=== PATIENT | female | born 1955 | race Caucasian/White ===

== ENCOUNTER 2024-04-27 10:55 | Inpatient (IN) | payer BC, OTHER ==
[~2024-04-27] VITALS: Ht 165.1 cm; Wt 57.2 kg
[~2024-04-27 10:55] MED LIST: ALBU2.5V13 IH; ALPR0.25 PO; AMIT50TA3 PO; ASPI-1169 PO; ATOR10TA PO; CARV3.122 PO; DIPH25CA51 PO; FLUT1DIS3 IH; FURO20TA4 PO; IPRA12.9 IH; LISI-768 PO; NAPR220T66 PO; OMEP40CA21 PO; TRAM50TA2 PO; ZOLP5TAB2 PO
[2024-04-27] MEDS ORDERED: MORPHINE SULFATE INJ 4 MG/ML DISP.SYRIN ONE ×2 (11:14→15:04)
[2024-04-27] MEDS ORDERED: ONDANSETRON HCL/PF 4 MG/2 ML VIAL ONE (11:14)
[2024-04-27] MEDS: ONDANSETRON HCL/PF 4 MG/2 ML VIAL IVP ONE (11:36)
[2024-04-27] MEDS: MORPHINE SULFATE INJ 2 MG/ML DISP.SYRIN IV ONE (11:37)
[2024-04-27] MEDS: IV NS 0.9% 500 ML BAG IV ONE (11:37)
[2024-04-27 11:51] LABS: BASOPHILS # (AUTO) 0.1 K/uL (0.0-0.2); BASOPHILS % (AUTO) 2.1 % (0.0-2.0); EOSINOPHILS # (AUTO) 0.1 K/uL (0.0-0.7); EOSINOPHILS % (AUTO) 1.2 % (0.0-6.0); HEMATOCRIT 34 % (33-45); HEMOGLOBIN 10.9 g/dL (11.5-14.8); LYMPHOCYTES # (AUTO) 1.2 K/uL (0.8-4.8); LYMPHOCYTES % (AUTO) 19.5 % (20.0-44.0); MEAN CORPUSCULAR HEMOGLOBIN 31 PG (26.0-33.0); MEAN CORPUSCULAR HGB CONC 32 g/dl (31.0-36.0); MEAN CORPUSCULAR VOLUME 96 fL (82-100); MONOCYTES # (AUTO) 0.4 K/uL (0.1-1.30); MONOCYTES % (AUTO) 5.8 % (2.0-12.0); NEUTROPHILS # (AUTO) 4.6 K/uL (1.8-8.9); NEUTROPHILS % (AUTO) 71.4 % (43.0-81.0); PLATELET COUNT (AUTO) 298 K/uL (150-450); RED BLOOD CELL COUNT(AUTO) 3.56 MIL/uL (4.0-5.2); RED CELL DISTRIBUTION WIDTH 13.7 % (11.5-15.0); WHITE BLOOD COUNT (AUTO) 6.4 K/uL (4.3-11.0)
[2024-04-27] MEDS ORDERED: ALEN70TA80 PO (11:56)
[2024-04-27] MEDS ORDERED: METO50TA16 PO (11:56)
[2024-04-27] MEDS ORDERED: CALC0.253 PO (11:56)
[2024-04-27] MEDS ORDERED: BIMA2.5D5 EACHEYE (11:56)
[2024-04-27] MEDS ORDERED: SODI10PO PO (11:56)
[2024-04-27 12:11] LABS: CALCIUM, SERUM 8.5 mg/dL (8.5-10.1); CREATININE 1.3 mg/dL (0.6-1.3); POTASSIUM 3.8 mmol/L (3.5-5.1)
[2024-04-27] MEDS: MORPHINE SULFATE INJ 4 MG/ML DISP.SYRIN IV STA (15:10)
[2024-04-27 16:00] VITALS: BP 117/76; TEMP 97.9; O2SAT 94
[2024-04-27] MEDS ORDERED: MAG HYDROX/AL HYDROX/SIMETH 30 ML UDC PO PRN (16:00)
[2024-04-27] MEDS ORDERED: Z GUARD REMEDY 4 OZ OINT TP PRN (16:00)
[2024-04-27] MEDS: METOPROLOL TARTRATE 50 MG TABLET PO SCH (17:39)
[2024-04-27] MEDS: MORPHINE SULFATE INJ 4 MG/ML DISP.SYRIN IV PRN (18:34)
[2024-04-27 20:43] VITALS: BP 108/62; TEMP 97.9; O2SAT 94
[2024-04-27] MEDS: AMITRIPTYLINE HCL 25 MG TABLET PO SCH (21:06)
[2024-04-28] VITALS (38 sets, daily range): BP systolic 70–145; BP diastolic 50–87; TEMP 97.5–98.7; O2SAT 73–100
[2024-04-28] MEDS: IV D5/0.45 NACL 1,000 ML IV ONE (05:06)
[2024-04-28 07:25] LABS: INR 0.96 (0.91-1.10); PARTIAL THROMBOPLASTIN TIME 27.9 SEC (24.3-34.3); PROTHROMBIN TIME 10.2 SECS (9.2-11.1)
[2024-04-28 07:26] LABS: BASOPHILS % (AUTO) 0.3 % (0.0-2.0); EOSINOPHILS % (AUTO) 0.3 % (0.0-6.0); HEMATOCRIT 36 % (33-45); LYMPHOCYTES # (AUTO) 1.1 K/uL (0.8-4.8); LYMPHOCYTES % (AUTO) 10.1 % (20.0-44.0); MEAN CORPUSCULAR HEMOGLOBIN 30 PG (26.0-33.0); MEAN CORPUSCULAR HGB CONC 31 g/dl (31.0-36.0); MEAN CORPUSCULAR VOLUME 98 fL (82-100); MONOCYTES # (AUTO) 0.6 K/uL (0.1-1.30); MONOCYTES % (AUTO) 5.5 % (2.0-12.0); NEUTROPHILS # (AUTO) 9.4 K/uL (1.8-8.9); NEUTROPHILS % (AUTO) 83.8 % (43.0-81.0); PLATELET COUNT (AUTO) 314 K/uL (150-450); RED BLOOD CELL COUNT(AUTO) 3.67 MIL/uL (4.0-5.2); RED CELL DISTRIBUTION WIDTH 13.5 % (11.5-15.0); WHITE BLOOD COUNT (AUTO) 11.3 K/uL (4.3-11.0)
[2024-04-28 07:37] LABS: CALCIUM, SERUM 8.7 mg/dL (8.5-10.1); CREATININE 1.4 mg/dL (0.6-1.3); MAGNESIUM 2.5 mg/dL (1.8-2.4); PHOSPHORUS 5.9 mg/dL (2.5-4.9); POTASSIUM 4.3 mmol/L (3.5-5.1)
[2024-04-28] MEDS: NALOXONE HCL 0.4 MG/ML AMPUL IV PRN (08:28)
[2024-04-28] MEDS: IV NS 0.9% 500 ML BAG IV ONE (09:08)
[2024-04-28 09:10] LABS: ABG BASE EXCESS 3.8 mmol/L (-2.0-3.0); ABG OXYGEN SATURATION 84.3 % (94.0-98.0); ABG PCO2 68.8 mmHg (32.0-45.0); ABG PH 7.287 (7.350-7.450); ABG TOTAL HEMOGLOBIN 11.7 G/dL (12.0-16.0); COHb 2.9 % (0.5-1.5); O2Hb 81.9 % (94.0-97.0); SITE, ABG RIGHT RADIAL
[2024-04-28 14:31] LABS: ABG BASE EXCESS 7.5 mmol/L (-2.0-3.0); ABG OXYGEN SATURATION 92.7 % (94.0-98.0); ABG PCO2 93.2 mmHg (32.0-45.0); ABG PH 7.225 (7.350-7.450); ABG PO2 71.9 mmHg (83.0-108.0); ABG TOTAL HEMOGLOBIN 10.9 G/dL (12.0-16.0); COHb 2.3 % (0.5-1.5); O2Hb 90.6 % (94.0-97.0); SITE, ABG UVC
[2024-04-28] MEDS: IV NS 0.9% 1,000 ML IV PRN (22:03)
[2024-04-29] VITALS (59 sets, daily range): BP systolic 92–163; BP diastolic 55–98; TEMP 97.2–100.2; O2SAT 88–100
[2024-04-29 00:29] LABS: ABG BASE EXCESS 2.3 mmol/L (-2.0-3.0); ABG PCO2 62.7 mmHg (32.0-45.0); ABG PH 7.296 (7.350-7.450); ABG PO2 80.7 mmHg (83.0-108.0); ABG TOTAL HEMOGLOBIN 10.9 G/dL (12.0-16.0); COHb 1.1 % (0.5-1.5); MetHb 0.2 % (0.0-1.5); O2Hb 93.8 % (94.0-97.0); SITE, ABG RIGHT BRACHIAL
[2024-04-29] MEDS: LORAZEPAM INJ 2 MG/ML VIAL IV ONE (02:26)
[2024-04-29] MEDS ORDERED: hydrALAZINE HCL IV 20 MG VIAL IV PRN (09:00)
[2024-04-29 11:23] LABS: ABG BASE EXCESS 1.4 mmol/L (-2.0-3.0); ABG OXYGEN SATURATION 85.2 % (94.0-98.0); ABG PCO2 61.6 mmHg (32.0-45.0); ABG PO2 51.1 mmHg (83.0-108.0); ABG TOTAL HEMOGLOBIN 10.7 G/dL (12.0-16.0); COHb 1.3 % (0.5-1.5); MetHb 0.1 % (0.0-1.5); SITE, ABG LEFT RADIAL
[2024-04-29] MEDS ORDERED: QUETIAPINE FUMARATE 25 MG TABLET PO SCH (12:00)
[2024-04-29] MEDS: QUETIAPINE FUMARATE 25 MG TABLET PO SCH (12:21)
[2024-04-29 12:24] LABS: BASOPHILS % (AUTO) 0.4 % (0.0-2.0); EOSINOPHILS # (AUTO) 0.1 K/uL (0.0-0.7); EOSINOPHILS % (AUTO) 0.6 % (0.0-6.0); HEMATOCRIT 31 % (33-45); HEMOGLOBIN 9.9 g/dL (11.5-14.8); LYMPHOCYTES # (AUTO) 0.6 K/uL (0.8-4.8); LYMPHOCYTES % (AUTO) 6.6 % (20.0-44.0); MEAN CORPUSCULAR HEMOGLOBIN 31 PG (26.0-33.0); MEAN CORPUSCULAR HGB CONC 32 g/dl (31.0-36.0); MEAN CORPUSCULAR VOLUME 99 fL (82-100); MONOCYTES # (AUTO) 0.5 K/uL (0.1-1.30); MONOCYTES % (AUTO) 5.2 % (2.0-12.0); NEUTROPHILS # (AUTO) 8.2 K/uL (1.8-8.9); NEUTROPHILS % (AUTO) 87.2 % (43.0-81.0); PLATELET COUNT (AUTO) 198 K/uL (150-450); RED BLOOD CELL COUNT(AUTO) 3.17 MIL/uL (4.0-5.2); RED CELL DISTRIBUTION WIDTH 13.8 % (11.5-15.0); WHITE BLOOD COUNT (AUTO) 9.5 K/uL (4.3-11.0)
[2024-04-29 12:28] LABS: CALCIUM, SERUM 8.5 mg/dL (8.5-10.1); CREATININE 1.1 mg/dL (0.6-1.3); POTASSIUM 4.7 mmol/L (3.5-5.1)
[2024-04-29] MEDS: ACETAMINOPHEN 325 MG TABLET PO PRN (19:52)
[2024-04-30] VITALS (25 sets, daily range): BP systolic 90–150; BP diastolic 50–91; TEMP 97.6–98.6; O2SAT 96–100
[2024-04-30 04:52] LABS: BASOPHILS # (AUTO) 0.1 K/uL (0.0-0.2); BASOPHILS % (AUTO) 0.9 % (0.0-2.0); EOSINOPHILS # (AUTO) 0.1 K/uL (0.0-0.7); EOSINOPHILS % (AUTO) 0.7 % (0.0-6.0); HEMATOCRIT 28 % (33-45); HEMOGLOBIN 8.6 g/dL (11.5-14.8); LYMPHOCYTES # (AUTO) 0.7 K/uL (0.8-4.8); LYMPHOCYTES % (AUTO) 4.8 % (20.0-44.0); MEAN CORPUSCULAR HEMOGLOBIN 31 PG (26.0-33.0); MEAN CORPUSCULAR HGB CONC 31 g/dl (31.0-36.0); MEAN CORPUSCULAR VOLUME 97 fL (82-100); MONOCYTES # (AUTO) 0.7 K/uL (0.1-1.30); MONOCYTES % (AUTO) 5.1 % (2.0-12.0); NEUTROPHILS # (AUTO) 12.2 K/uL (1.8-8.9); NEUTROPHILS % (AUTO) 88.5 % (43.0-81.0); PLATELET COUNT (AUTO) 171 K/uL (150-450); RED BLOOD CELL COUNT(AUTO) 2.83 MIL/uL (4.0-5.2); RED CELL DISTRIBUTION WIDTH 13.7 % (11.5-15.0); WHITE BLOOD COUNT (AUTO) 13.8 K/uL (4.3-11.0)
[2024-04-30 05:08] LABS: CALCIUM, SERUM 7.7 mg/dL (8.5-10.1); CREATININE 0.9 mg/dL (0.6-1.3); POTASSIUM 4.5 mmol/L (3.5-5.1)
[2024-04-30] MEDS: IPRATROPIUM NEB FS 0.5 MG/2.5 ML AMPUL.NEB NEB SCH (07:28)
[2024-04-30] MEDS: ALBUTEROL HALF STRENGTH 1.25 MG/3 ML VIAL.NEB NEB SCH (07:28)
[2024-04-30 07:56] LABS: ABG BASE EXCESS -0.5 mmol/L (-2.0-3.0); ABG OXYGEN SATURATION 90.2 % (94.0-98.0); ABG PH 7.273 (7.350-7.450); ABG PO2 61.6 mmHg (83.0-108.0); ABG TOTAL HEMOGLOBIN 10.5 G/dL (12.0-16.0); O2Hb 89.3 % (94.0-97.0); SITE, ABG RIGHT RADIAL
[2024-05-01] VITALS (33 sets, daily range): BP systolic 112–167; BP diastolic 52–117; TEMP 98–99; O2SAT 91–100
[2024-05-01 04:56] LABS: BASOPHILS % (AUTO) 0.3 % (0.0-2.0); EOSINOPHILS # (AUTO) 0.1 K/uL (0.0-0.7); EOSINOPHILS % (AUTO) 0.6 % (0.0-6.0); HEMATOCRIT 30 % (33-45); HEMOGLOBIN 9.5 g/dL (11.5-14.8); LYMPHOCYTES # (AUTO) 0.6 K/uL (0.8-4.8); LYMPHOCYTES % (AUTO) 4.8 % (20.0-44.0); MEAN CORPUSCULAR HEMOGLOBIN 31 PG (26.0-33.0); MEAN CORPUSCULAR HGB CONC 32 g/dl (31.0-36.0); MEAN CORPUSCULAR VOLUME 96 fL (82-100); MONOCYTES # (AUTO) 0.7 K/uL (0.1-1.30); MONOCYTES % (AUTO) 5.4 % (2.0-12.0); NEUTROPHILS % (AUTO) 88.9 % (43.0-81.0); PLATELET COUNT (AUTO) 203 K/uL (150-450); RED BLOOD CELL COUNT(AUTO) 3.08 MIL/uL (4.0-5.2); RED CELL DISTRIBUTION WIDTH 13.9 % (11.5-15.0); WHITE BLOOD COUNT (AUTO) 12.4 K/uL (4.3-11.0)
[2024-05-01 04:58] LABS: CALCIUM, SERUM 8.7 mg/dL (8.5-10.1); CREATININE 0.8 mg/dL (0.6-1.3); POTASSIUM 4.2 mmol/L (3.5-5.1)
[2024-05-01 09:00] LABS: ABG BASE EXCESS -3.2 mmol/L (-2.0-3.0); ABG OXYGEN SATURATION 94.1 % (94.0-98.0); ABG PCO2 44.5 mmHg (32.0-45.0); ABG PH 7.326 (7.350-7.450); ABG PO2 76.8 mmHg (83.0-108.0); ABG TOTAL HEMOGLOBIN 10.4 G/dL (12.0-16.0); COHb 0.9 % (0.5-1.5); O2Hb 93.3 % (94.0-97.0); SITE, ABG RIGHT BRACHIAL
[2024-05-01] MEDS: POLYVINYL ALCOHOL 15 ML BOTTLE EACHEYE PRN (17:50)
[2024-05-02] VITALS (22 sets, daily range): BP systolic 107–186; BP diastolic 62–134; TEMP 97.6–98.8; O2SAT 79–100
[2024-05-02] MEDS: CLONIDINE HCL 0.1 MG TABLET PO PRN (07:08)
[2024-05-02] MEDS: HYDROCODONE/APAP 5/325MG TABLET PO ONE (21:40)
[2024-05-03] VITALS (11 sets, daily range): BP systolic 107–167; BP diastolic 70–85; TEMP 97.2–98.7; O2SAT 91–100
[2024-05-03 07:37] LABS: CALCIUM, SERUM 8.4 mg/dL (8.5-10.1); CREATININE 0.8 mg/dL (0.6-1.3); POTASSIUM 4.3 mmol/L (3.5-5.1)
[2024-05-03 07:44] LABS: BASOPHILS # (AUTO) 0.1 K/uL (0.0-0.2); EOSINOPHILS # (AUTO) 0.2 K/uL (0.0-0.7); EOSINOPHILS % (AUTO) 2.7 % (0.0-6.0); HEMATOCRIT 28 % (33-45); LYMPHOCYTES # (AUTO) 0.9 K/uL (0.8-4.8); LYMPHOCYTES % (AUTO) 12.1 % (20.0-44.0); MEAN CORPUSCULAR HEMOGLOBIN 30 PG (26.0-33.0); MEAN CORPUSCULAR HGB CONC 32 g/dl (31.0-36.0); MEAN CORPUSCULAR VOLUME 96 fL (82-100); MONOCYTES # (AUTO) 0.5 K/uL (0.1-1.30); MONOCYTES % (AUTO) 6.1 % (2.0-12.0); NEUTROPHILS # (AUTO) 5.9 K/uL (1.8-8.9); NEUTROPHILS % (AUTO) 78.1 % (43.0-81.0); PLATELET COUNT (AUTO) 244 K/uL (150-450); RED BLOOD CELL COUNT(AUTO) 2.95 MIL/uL (4.0-5.2); RED CELL DISTRIBUTION WIDTH 13.9 % (11.5-15.0); WHITE BLOOD COUNT (AUTO) 7.6 K/uL (4.3-11.0)
[2024-05-03] MEDS ORDERED: LORAZEPAM 0.5 MG TABLET PO PRN (10:30)
[2024-05-03] MEDS: MORPHINE SULFATE INJ 2 MG/ML DISP.SYRIN IV PRN (12:16)
[2024-05-04] VITALS (13 sets, daily range): BP systolic 116–145; BP diastolic 60–93; TEMP 98.1–101; O2SAT 90–98
[2024-05-04] MEDS: ACETAMINOPHEN 650 MG/SUPP.RECT RC PRN (11:47)
[2024-05-04] MEDS ORDERED: FENTANYL PF 250MCG/5ML AMPUL ONE (14:33)
[2024-05-04] MEDS ORDERED: ALBUMIN 5% 250 ML IV ONE (14:33)
[2024-05-04] MEDS ORDERED: ALBUTEROL SULFATE 8 GM HFA.AER.AD ONE (14:34)
[2024-05-04] MEDS ORDERED: VASOPRESSIN INJ 20 UNIT/ML VIAL ONE (14:34)
[2024-05-04] MEDS ORDERED: Magnesium 1 GM/2 ML VIAL ONE (14:34)
[2024-05-04] MEDS ORDERED: VANCOMYCIN 1 GM VIAL ONE (14:39)
[2024-05-04] MEDS ORDERED: BUPIVACAINE 0.5 % PF 150 MG/30 ML VIAL ONE (14:39)
[2024-05-04] MEDS ORDERED: ANESTHESIA TRAY IN PYXIS 1 EA TRAY MC ONE (14:39)
[2024-05-04] MEDS ORDERED: POLYMYXIN B SULFATE 500,000 UNITS ONE (14:39)
[2024-05-04] MEDS ORDERED: SEVOFLURANE 250 ML BOTTLE IH ONE (14:52)
[2024-05-04] MEDS ORDERED: ROPIVACAINE HCL 0.5% 5 MG/ML 30ML VIAL ONE (15:05)
[2024-05-04] MEDS ORDERED: BUPIVACAINE 0.25% 75 MG/30 ML VIAL ONE (15:11)
[2024-05-04] MEDS: HYDROCODONE/APAP 10/325MG TABLET PO PRN (18:31)
[2024-05-04] MEDS: IV D5/0.45 NACL W/20 MEQ KCL 1L IV PRN (20:50)
[2024-05-05] VITALS (14 sets, daily range): BP systolic 98–127; BP diastolic 61–79; TEMP 97.3–98.6; O2SAT 78–99
[2024-05-05] MEDS: CEFAZOLIN 2 GM in IV D5W 100 ML IV SCH (01:39)
[2024-05-05] MEDS: ONDANSETRON HCL/PF 4 MG/2 ML VIAL IVP PRN (14:36)
[2024-05-06] VITALS (9 sets, daily range): BP systolic 103–110; BP diastolic 62–72; TEMP 97.3–98.4; O2SAT 86–98
[2024-05-06 07:11] LABS: CALCIUM, SERUM 8.5 mg/dL (8.5-10.1); POTASSIUM 4.7 mmol/L (3.5-5.1)
[2024-05-06 07:13] LABS: BASOPHILS # (AUTO) 0.1 K/uL (0.0-0.2); BASOPHILS % (AUTO) 0.7 % (0.0-2.0); EOSINOPHILS # (AUTO) 0.1 K/uL (0.0-0.7); EOSINOPHILS % (AUTO) 1.4 % (0.0-6.0); HEMATOCRIT 26 % (33-45); HEMOGLOBIN 8.1 g/dL (11.5-14.8); LYMPHOCYTES # (AUTO) 0.9 K/uL (0.8-4.8); LYMPHOCYTES % (AUTO) 8.1 % (20.0-44.0); MEAN CORPUSCULAR HEMOGLOBIN 31 PG (26.0-33.0); MEAN CORPUSCULAR HGB CONC 31 g/dl (31.0-36.0); MEAN CORPUSCULAR VOLUME 97 fL (82-100); MONOCYTES # (AUTO) 0.8 K/uL (0.1-1.30); MONOCYTES % (AUTO) 7.6 % (2.0-12.0); NEUTROPHILS # (AUTO) 8.6 K/uL (1.8-8.9); NEUTROPHILS % (AUTO) 82.2 % (43.0-81.0); PLATELET COUNT (AUTO) 277 K/uL (150-450); RED BLOOD CELL COUNT(AUTO) 2.66 MIL/uL (4.0-5.2); WHITE BLOOD COUNT (AUTO) 10.5 K/uL (4.3-11.0)
[2024-05-06] MEDS ORDERED: ENOX40DI SQ (09:16)
[2024-05-06] MEDS ORDERED: Quetiapine Fumarate PO (09:16)
[2024-05-06] MEDS: MAGNESIUM HYDROXIDE 30 ML UDC PO PRN (13:41)
== END 2024-05-06 15:54 | DRG 480 ==
LOC: ER 10:57 → MED 12:59 → ICU 04-28 10:28 → TELE1 05-02 14:16 → MEDSG1 05-06 10:27
PROVIDERS: ADMIT Internal Medicine; ATTEND Internal Medicine
PROC: 5A09457 Assistance with Respiratory Ventilation, 24-96 Consecutive Hours, Continuous Positive Airway Pressure (ICD-10-PCS; 2024-04-28)
PROC: 0QS706Z Reposition Left Upper Femur with Intramedullary Internal Fixation Device, Open Approach (ICD-10-PCS; principal; 2024-05-04)
DX: S72.145A Nondisplaced intertrochanteric fracture of left femur, initial encounter for closed fracture (principal); J96.22 Acute and chronic respiratory failure with hypercapnia; I50.22 Chronic systolic (congestive) heart failure; N17.9 Acute kidney failure, unspecified; E87.29 Other acidosis; F05 Delirium due to known physiological condition; W03.XXXA Other fall on same level due to collision with another person, initial encounter; Y93.89 Activity, other specified; Y92.89 Other specified places as the place of occurrence of the external cause; M81.0 Age-related osteoporosis without current pathological fracture; F17.210 Nicotine dependence, cigarettes, uncomplicated; I25.5 Ischemic cardiomyopathy; I25.2 Old myocardial infarction; E78.5 Hyperlipidemia, unspecified; I11.0 Hypertensive heart disease with heart failure; D64.9 Anemia, unspecified; J44.9 Chronic obstructive pulmonary disease, unspecified; Z79.899 Other long term (current) drug therapy; Z79.82 Long term (current) use of aspirin; F32.A Depression, unspecified; F41.9 Anxiety disorder, unspecified
CPT/HCPCS: 36415; 36600; 70450-TC; 71045-TC; 72192-TC; 73502; 73552; 80048-TC; 82803-TC; 83735-TC; 84100-TC; 85025-TC; 85730-TC; 86850-TC; 93307-TC; 94760-TC; 94762-TC; 94799-TC; 97110-TC; 97112-TC; 97530-TC; 97535-TC; A4223; A6209; C1713; G0378; J0690; J2060; J2270; J2405; J2704; J2765; J2795; J3010; J3370; J3475; J3480; J3490; J7030; J7040; J7050; J7060; P9045